=== PATIENT | female | born 1945 | race Caucasian/White ===

== ENCOUNTER 2018-11-01 14:17 | Emergency (ER) | payer MEDICARE, OTHER, SELFPAY ==
[2018-11-01 14:22] VITALS: BP 135/57; PULSE 77; RESP 20; TEMP 36.7; O2SAT 96
--- NOTE | 2018-11-01 16:18 | DI.CT.S_ITS ---
PROCEDURE: CT FACIAL BONES WO CON INDICATIONS: hx of recent nasal fx and had returned from [place], pain TECHNIQUE: Noncontrast 2.5 mm thick axial images acquired from the mandible through the frontal sinuses, with coronal and sagittal reformatting. For radiation dose reduction, the following was used: automated exposure control, adjustment of mA and/or kV according to patient size. COMPARISON: None. FINDINGS: Image quality: Excellent. Bones and teeth: Orbital solano are intact. Sinus solano show no fracture or deformity. Osseous nasal septum is intact with slight leftward deviation. Age indeterminate nasal bone fractures. Visualized portions of the mandible demonstrate no fractures or subluxation. Degenerative changes of the bilateral temporomandibular joints greater on the left. Zygomatic arches are intact. Pterygoid plates are intact. Visualized portions of the skull base and auditory canals are intact. Middle ear ossicles are well aligned. Sinuses: Mild right and minimal left maxillary sinus mucosal thickening. Of note, there is associated periapical lucencies involving the right maxillary molar teeth. Remainder of the visualized paranasal sinuses are aerated, without fluid levels, mucosal thickening, or mucoceles. Mastoid air cells are aerated. Soft tissues: No edema, masses, or fluid collections. No enlarged lymph nodes. No soft tissue lacerations or debris. Vascular: Visualized vascular structures appear normal in the absence of contrast. Bony vascular foramina and canals are intact. IMPRESSION: 1. Age indeterminate nasal bone fractures. 2. Remainder of the imaged facial bones appear intact without acute fracture. 3. Periapical osseous lucencies involving the right maxillary molar teeth with overlying right maxillary mucosal thickening. Findings may be related to paranasal sinus disease versus dental caries with associated erosions into the right maxillary sinus. Consider further evaluation with dental consultation if there are clinical symptoms. 4. Bilateral temporomandibular joint degenerative change, greater on the left. 5. Mild right and minimal left bilateral maxillary sinus disease. Dictated by: Bravo Dave M.D. on 11/01/2018 at 17:07 Approved by: Bravo Dave M.D. on 11/01/2018 at 17:18
--- NOTE | 2018-11-01 16:18 | DI.RAD.S_ITS ---
PROCEDURE: XR KNEE RT 3V INDICATIONS: R medial knee pain, fell 2 wks ago TECHNIQUE: 3 views of the knee were acquired. COMPARISON: None. FINDINGS: Bones: No fractures or dislocations. No suspicious bony lesions. Moderate patellofemoral and minimal to mild medial and lateral compartment narrowing. Soft tissues: Minimal joint effusion. No suspicious soft tissue calcifications. IMPRESSION: Minimal effusion. No visualized acute fracture or dislocation. However, if clinical concern and/or pain persist, short interval imaging followup in 7-10 days is recommended, as occult injury cannot be definitively excluded. Dictated by: Sana Childers M.D. on 11/01/2018 at 17:00 Approved by: Sana Childers M.D. on 11/01/2018 at 17:01
--- NOTE | 2018-11-01 17:39 | ED.RECABL ---
HPI - Recheck/Abnormal Lab/Rx <DEEPTI June - Last Filed: 11/01/18 21:53> General Chief Complaint: Recheck/Abnormal Lab/Rx Stated Complaint: Fracture nose, needs it checked Time Seen by Provider: 11/01/18 15:54 Source: patient and family Mode of arrival: ambulatory Limitations: no limitations History of Present Illness HPI narrative: This is a 73-year-old female, nonsmoker, who presents to ED with her spouse to follow-up on her nasal fracture she sustained 2 weeks ago after she tripped on electrical cord and fell flat on her face coming down stairs. This happened when they were residing in [place]. She seek medical attention at that time and had x-ray test done and was told she has two areas of nasal fracture. Patient reports the swelling and bruise has been improving. She is able to breathe with through her nose. However, she is now having some swelling above her nasal bridge and discomfort in her ethmoid sinus area. Patient denies fever, chills, nausea, vomiting, purulent nasal discharge. Patient flew to [facility] from [place] on 10/18/18. Patient is here today to verify if her nasal fracture is healing well. Patient also reports right medial knee pain from the same fall. She was not evaluated for this after the fall. She reports no difficulty with flexion, extension, movement of her right leg but it is tender to palpate and noticed bruise on affected knee. Related Data Home Medications Medication Instructions Recorded Confirmed estradiol [Vagifem] 10 mcg VAGINAL 2XW 11/01/18 11/01/18 Allergies Allergy/AdvReac Type Severity Reaction Status Date / Time No Known Drug Allergies Allergy Verified 11/01/18 16:08 Review of Systems <DEEPTI June - Last Filed: 11/01/18 21:53> Review of Systems Narrative: General: Denies fever, chills, fatigue, malaise, sweats. HEENT: See HPI Respiratory: Denies dyspnea, cough, wheezing, hemoptysis, sputum. Cardiovascular: Denies chest pain, palpitations, orthopnea, edema. Gastrointestinal: Denies nausea, vomiting, abdominal pain, diarrhea, constipation, melena. : Denies dysuria, frequency, incontinence, hematuria, urinary retention. Musculoskeletal: See HPI Skin: Denies rash, skin lesions, or other. Neurologic: Denies weakness, headache, numbness, change in speech, confusion, seizures, incoordination. Psychiatric: No concerning psychosocial issues. 12-point review of systems is negative except for those stated above. PFSH <DEEPTI June - Last Filed: 11/01/18 21:53> Medical History Cardiac valve prolapse (Acute) Surgical History Status post dilation and curettage Social History Smoking Status: Never smoker Exam <DEEPTI June - Last Filed: 11/01/18 21:53> Narrative Exam Narrative: GEN: Alert, oriented x 3, well appearing and nourished, and in no acute distress. Head: Normal cephalic, atraumatic. No scalp or temporal tenderness, palpable mass or rash. EYES: Pupils are equal, round, and reactive to light and accommodation. Extraocular muscles are intact bilaterally. There is no subconjunctival hemorrhage, exudate and sclera non-icteric. ENT: Bilateral auditory canals and tympanic membranes clear. No hemotympanum. Hearing grossly intact. Nose without bleeding, purulent discharge or deviation. Moderate swelling right turbinate. Nasal sinus tender to palpate with swelling. Ecchymosis below bilateral lower eyelids. Mucous membrane moist, no mucosal lesion. Throat without erythema, tonsillar hypertrophy or exudate. Uvula in midline, airway patent. Neck: Trachea in midline. No JVD, non-tender without lymphadenopathy. No masses or thyroid megaly. Supple, non-tender and no meningeal signs. CARDIAC: Normal regular rate and rhythm without murmurs, gallops, or rubs. No chest wall tenderness. No peripheral edema, cyanosis or pallor. Capillary refill is less than 2 seconds. RESPIRATORY: Lungs are cleat to auscultate bilaterally. No cough, wheezes, rales, or rhonchi. No stridor, respiratory distress, increase work of breathing, or accessary muscle used. ABD: Abdomen soft, nontender and non-distended. No guarding or rebound tenderness to palpate. Bowel sounds are normal in all 4 quadrants. There is no palpable masses or organomegaly. SKIN: Warm, dry, normal color for patient. No erythema, lesions or rash over visible areas. BACK: Nontender without deformity or crepitance. No flank tenderness. NEUROLOGICAL: Alert and oriented to place, time and person. Sensation and motor function intact bilaterally. No facial droops, dysphasia. PSYCHIATRIC: Good judgement and reason, without hallucinations, abnormal affect or abnormal behaviors during the examination. Patient is not suicidal. Initial Vital Signs Initial Vital Signs: Vital Signs Temperature 98.1 F 11/01/18 14:22 Pulse Rate 77 11/01/18 14:22 Respiratory Rate 20 11/01/18 14:22 Blood Pressure 135/57 L 11/01/18 14:22 Pulse Oximetry 96 11/01/18 14:22 Extrem Right lower extremity: normal capillary refill, knee Details: normal to inspection, tenderness (Medial aspect of knee), swelling (Medial aspect of knee), normal ROM, knee ligament exam normal and ecchymosis (Medial aspect of knee); no crepitus, no deformity and no unusual warmth and foot Details: vascular exam Details: dorsalis pedis pulse present <Sherrie Winter DO - Last Filed: 11/02/18 07:41> Initial Vital Signs Initial Vital Signs: Vital Signs Temperature 98.1 F 11/01/18 14:22 Pulse Rate 77 11/01/18 14:22 Respiratory Rate 20 11/01/18 14:22 Blood Pressure 135/57 L 11/01/18 14:22 Pulse Oximetry 96 11/01/18 14:22 Scores <DEEPTI June - Last Filed: 11/01/18 21:53> GCS Sanjay coma scale eye opening: Spontaneous [place] coma scale verbal response: Orientated [place] coma scale motor response: Obey commands [place] coma scale total score: 15 Course <DEEPTI June - Last Filed: 11/01/18 21:53> Orders Ordered: ED Orders 11/01/18 16:18 CT facial bones wo con Stat XR knee RT 3V Stat Vital Signs Vital signs: Vital Signs - 8 hr 11/01/18 14:22 11/01/18 17:57 Temperature 98.1 F Pulse Rate 77 73 Respiratory Rate 20 17 Blood Pressure 135/57 L Blood Pressure [Right Arm] 148/49 H Pulse Oximetry 96 96 <Sherrie Winter DO - Last Filed: 11/02/18 07:41> Orders Ordered: ED Orders 11/01/18 16:18 CT facial bones wo con Stat XR knee RT 3V Stat Vital Signs Vital signs: Vital Signs - 8 hr 11/01/18 14:22 11/01/18 17:57 Temperature 98.1 F Pulse Rate 77 73 Respiratory Rate 20 17 Blood Pressure 135/57 L Blood Pressure [Right Arm] 148/49 H Pulse Oximetry 96 96 MDM - Recheck/Abnormal Lab/Rx <DEEPTI June - Last Filed: 11/01/18 21:53> Differential Diagnosis Differential diagnosis: Likely other (nasal fracture, pneumonsinus dilantans, sinus infection, knee contusion, patella fracture, knee dislocation) Medical Records Attestation: I reviewed the patient's medical records. Imaging Data XR-Knee RT: Radiologist's impression: [place] [address] XRay Report Signed Patient: Natalia Dial [facility]#: [id number] : 1945cct:[id number] Age/Sex: 73 / FDate of Service: 11/01/18 Loc: ED Accession Number: [id number] Procedure: XR knee RT 3V Ordering Provider: Jose J Malloy PROCEDURE: XR KNEE RT 3V INDICATIONS: R medial knee pain, fell 2 wks ago TECHNIQUE: 3 views of the knee were acquired. COMPARISON: None. FINDINGS: Bones: No fractures or dislocations. No suspicious bony lesions. Moderate patellofemoral and minimal to mild medial and lateral compartment narrowing. Soft tissues: Minimal joint effusion. No suspicious soft tissue calcifications. IMPRESSION: Minimal effusion. No visualized acute fracture or dislocation. However, if clinical concern and/or pain persist, short interval imaging followup in 7-10 days is recommended, as occult injury cannot be definitively excluded. Dictated by: Sana Childers M.D. on 11/01/2018 at 17:00 Approved by: Sana Childers M.D. on 11/01/2018 at 17:01 CT-facial bones: Radiologist's impression: Natalia Dial 73 F [address] [address] [address] Scan Report Signed Patient: Natalia Dial [facility]#: [id number] : [id number]:[id number] Age/Sex: 73 / FDate of Service: 11/01/18 Loc: ED Accession Number: [id number] Procedure: CT facial bones wo con Ordering Provider: Jose J Malloy PROCEDURE: CT FACIAL BONES WO CON INDICATIONS: hx of recent nasal fx and had returned from [place], pain TECHNIQUE: Noncontrast 2.5 mm thick axial images acquired from the mandible through the frontal sinuses, with coronal and sagittal reformatting. For radiation dose reduction, the following was used: automated exposure control, adjustment of mA and/or kV according to patient size. COMPARISON: None. FINDINGS: Image quality: Excellent. Bones and teeth: Orbital solano are intact. Sinus solano show no fracture or deformity. Osseous nasal septum is intact with slight leftward deviation. Age indeterminate nasal bone fractures. Visualized portions of the mandible demonstrate no fractures or subluxation. Degenerative changes of the bilateral temporomandibular joints greater on the left. Zygomatic arches are intact. Pterygoid plates are intact. Visualized portions of the skull base and auditory canals are intact. Middle ear ossicles are well aligned. Sinuses: Mild right and minimal left maxillary sinus mucosal thickening. Of note, there is associated periapical lucencies involving the right maxillary molar teeth. Remainder of the visualized paranasal sinuses are aerated, without fluid levels, mucosal thickening, or mucoceles. Mastoid air cells are aerated. Soft tissues: No edema, masses, or fluid collections. No enlarged lymph nodes. No soft tissue lacerations or debris. Vascular: Visualized vascular structures appear normal in the absence of contrast. Bony vascular foramina and canals are intact. IMPRESSION: 1. Age indeterminate nasal bone fractures. 2. Remainder of the imaged facial bones appear intact without acute fracture. 3. Periapical osseous lucencies involving the right maxillary molar teeth with overlying right maxillary mucosal thickening. Findings may be related to paranasal sinus disease versus dental caries with associated erosions into the right maxillary sinus. Consider further evaluation with dental consultation if there are clinical symptoms. 4. Bilateral temporomandibular joint degenerative change, greater on the left. 5. Mild right and minimal left bilateral maxillary sinus disease. Dictated by: Bravo Dave M.D. on 11/01/2018 at 17:07 Approved by: Bravo Dave M.D. on 11/01/2018 at 17:18 MDM Narrative Medical decision making narrative: The patient sustained mechanical fall coming down stairs after tripping on all electrical wire and landed on her face 2 weeks ago in [place]. She had sustained a fracture on nasal bone from this. She is here to follow-up on the fracture. Patient also states she had injured right knee from this fall and will like to be evaluated. Right knee x-ray shows but no acute fractures or dislocation. Facial bone CT was obtained and shows indeterminate needed nasal bone fractures with slight leftward deviation. Also it indicates possible paranasal sinus disease versus rind maxillary sinus erosions from dental caries. Patient was advised to follow up with dentist discussed this. Patient's physical exam and vital signs are not consistent with sinus infection. Patient advised to take [id number] Tylenol and/or Motrin and elevate head of bed while sleeping to help with decreasing swelling on her injury site. Patient reports she is not required to follow up with ENT specialist at this time unless she is concerned for cosmetic reasons. Patient offered Robert wrap but declined at this time. [facility] resources are number was provided to select primary care physician. Discharge Plan Departure Patient Disposition: Home Clinical Impression: Closed fracture nasal bone Qualifiers: Encounter type: initial encounter Qualified Code(s): S02.2XXA - Fracture of nasal bones, initial encounter for closed fracture Contusion of knee Qualifiers: Encounter type: initial encounter Laterality: right Qualified Code(s): S80.01XA - Contusion of right knee, initial encounter Fall Qualifiers: Encounter type: initial encounter Qualified Code(s): W19.XXXA - Unspecified fall, initial encounter Discharge Date/Time: 11/01/18 18:06 Instructions: DI for Nose Fracture, DI for Knee Sprain Activity Restrictions/Additional Instructions: You have been diagnosed with [knee contusion. According to x-ray today there is no acute findings such as fracture, dislocation but there is a mild swelling from effusion on medial knee area. If pain persists, please follow-up with your primary care physician for additional imaging test. Please use Robert wrap for support as needed, elevate affected leg for pain and swelling. CT test of facial bones shows without air trapping sinuses. You may need to follow up with dental if he had pain in her upper teeth. According to the CT scan result you could have paranasal sinus disease versus dental caries associated erosion into in right maxillary sinus.]. What to do: *Take your medications as directed. You can take [id number] Tylenol and/or Motrin as needed for pain and inflammation. *Follow up with your primary care provider in 2-3 days, call for an appointment. Let them know you were seen in the ED and that we asked you to be seen in follow up. *Return to ED if you have any new, worsening, or concerning symptoms, such as [fever/ chills, breathing difficulty, severe pain, purulent discharge from nasal, severe headache, chest pain, unable to tolerate fluids or any acute concerns]. Prescriptions: No Action estradiol [Vagifem] 10 MCG tablet 10 mcg VAGINAL 2XW RF: 0 Referrals: [facility] [Outside] Gaviota Drake MD [Primary Care Provider] -
[2018-11-01 17:57] VITALS: BP 148/49; PULSE 73; RESP 17; O2SAT 96
--- NOTE | 2018-11-01 18:05 | PC.NURSE ---
pt refused an aries wrap. Jose J at bedside
== END 2018-11-01 18:06 | disposition home or self-care (01) ==
PROVIDERS: Emergency Provider Nurse Practitioner Family; Family Provider Obstetrics & Gynecology; PCP Obstetrics & Gynecology
DX: S02.2XXA Fracture of nasal bones, initial encounter for closed fracture (principal); S80.01XA Contusion of right knee, initial encounter; W19.XXXA Unspecified fall, initial encounter
CPT/HCPCS: 70486; 73562; 99282; 99283

== ENCOUNTER → 2018-12-21 15:08 | Outpatient (ROUT) | payer MEDICARE, OTHER, SELFPAY ==
[2018-12-21 15:23] LABS: Add Manual Diff / Slide Review NO; Basophils Absolute Auto 0 /uL (0-100); Basophils Percent Auto 0.4 % (0-2); Eosinophils Absolute Auto 200 /uL (0-450); Eosinophils Percent Auto 1.9 % (2-4); Hematocrit 42.9 % (36-46); Hemoglobin 14.6 g/dL (12.0-16.0); Lymphocytes Absolute Auto 1600 /uL (1100-4500); Lymphocytes Percent Auto 20.4 % (25-40); Mean Corpuscular Hemoglobin 30.7 PG (26-34); Mean Corpuscular Volume 90.2 fL (80-100); Monocytes Absolute Auto 600 /uL (0-900); Monocytes Percent Auto 7.4 % (3-14); Neutrophils Absolute Auto 5600 /uL (1500-7000); Neutrophils Percent Auto 69.9 % (50-75); Platelet Count 253 X10^3/uL (150-400); Red Blood Cell Count 4.76 X10^6/uL (4.0-5.2)
[2018-12-21 15:35] LABS: Alanine Aminotransferase 21 IU/L (9-52); Albumin 4.5 g/dL (3.5-5.0); Albumin Globulin Ratio 1.6 (1.0-2.8); Alkaline Phosphatase 100 U/L (38-126); Aspartate Aminotransferase 31 IU/L (15-46); Bilirubin Total 0.3 mg/dL (0.2-1.3); Blood Urea Nitrogen 15 mg/dL (7-17); Calcium 9.8 mg/dL (8.4-10.2); Carbon Dioxide 30 mmol/L (22-32); Chloride 100 mmol/L (98-107); Cholesterol 181 mg/dL (140-199); Estimated Glomerular Filt Rate > 60.0 mL/min (>60); Globulin 2.9 g/dL (1.7-4.1); Glucose 83 mg/dL (80-110); HDL Cholesterol 73 mg/dL (40-60); HEMOLYSIS < 15 (0-50); LDL Cholesterol Calculated 97 mg/dL (<100); Potassium 4.1 mmol/L (3.4-5.1); Sodium 139 mmol/L (137-145); Total Protein 7.4 g/dL (6.3-8.2); Triglycerides 56 mg/dL (35-150)
[2018-12-21 15:59] LABS: TSH w/ Reflex to FT4 2.92 uIU/mL (0.47-4.68)
== END ==
PROVIDERS: Family Provider Obstetrics & Gynecology; PCP Obstetrics & Gynecology; Visit Provider Internal Medicine
DX: R53.83 Other fatigue (principal); E78.2 Mixed hyperlipidemia; R32 Unspecified urinary incontinence; N39.0 Urinary tract infection, site not specified
CPT/HCPCS: 80053; 80061; 84443; 85025; 87077; 87086; 87186